=== PATIENT | male | born 1935 | race Caucasian/White ===

== ENCOUNTER 2017-04-03 13:43 | Inpatient (IN) | payer MEDICARE, OTHER ==
[~2017-04-03] VITALS: Ht 170.2 cm; Wt 50.1 kg
[~2017-04-03 13:43] MED LIST: BENAZEPRIL HYDR40 MG PO; CARBIDOPA/LE1 TABLE2 PO; CEFTIN500 MG PO; MIRALAX17 GM/PACK PO; PRAVASTATIN 20M20 MG PO; REQUIP0.25 MG PO; ZITHROMAX 250M250 MG PO; ZITHROMAX Z PA250 MG PO; ZITHROMAX Z-PA250 M2 PO; ZOCOR20 MG PO
[2017-04-03 13:45] VITALS: BP 123/65
[2017-04-03 14:03] LABS: LYMPH # 1.2 K/mm3 (0.7-4.5)
--- NOTE | 2017-04-03 14:21 | RADIOLOGY REPORT PS360 ---
CHEST-PORTABLE HISTORY: dyspnea ORDERING PHYSICIAN: Francisco De Jesus MD PATIENT AGE: 81 years COMPARISON: 12/29/2016 FINDINGS: The cardiomediastinal silhouette and pulmonary vascularity are within normal limits. The lungs are clear without infiltrates, suspicious nodules, or pleural effusions. No acute bony abnormalities. IMPRESSION: No change with no acute finding
--- OUTSIDE RECORDS SUMMARY | 2017-04-03 14:25 | External Medical Summary Rpt | CCD ---
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 Name Role Phone [facility], [facility] Purpose Continuity of Care Document - 07-19-2012 through 2016 Problems Code Diagnosis DOS Provider Status [address] [facility] J20.9 ACUTE BRONCHITIS, UNSPECIFIED M25.551 PAIN IN RIGHT HIP Allergies, Adverse Reactions, Alerts Type Allergy to substance Adverse Reaction to Substance Substance Reaction Severity INGREDIENT: NO KNOWN Unknown Unknown - NO KNOWN DRUG ALLERGY NO KNOWN ALLERGIES Unknown Unknown Medications Na ND Rx Da Fi Fi Am Da Di Ph RX Ph St me C No te ll ll ou ys ag ar # ys at rm s nt no ma ic us Or Da si cy ia de te s n re d TY 50 11 1 No LE 58 -2 NO 00 6- Lo L 45 20 ng EX 10 13 er -S 3 TR Ac ti 50 ve [address] ET HY [address] 07 -2 OC 90 6- Lo HL 77 20 ng OR 62 13 er OT 0 HI Ac AZ ti ID ve E 12 .5 MG CP LI 63 11 1 No SI 73 -2 NO 90 6- Lo WA 35 20 ng IL 01 13 er 0 20 Ac ti MG ve TA BL ET RE 00 11 1 No QU 00 -2 IP 74 6- Lo 1 89 20 ng 22 13 er MG 0 Ac TA ti BL ve ET Po 00 11 1 No ta 24 -2 ss 50 6- Lo iu 05 20 ng m 80 13 er Ch 1 lo Ac ri ti de ve 20 ME Q Ta bl e Po 00 11 1 No ta 24 -2 ss 50 6- Lo iu 05 20 ng m 80 13 er Ch 1 lo Ac ri ti de ve 20 ME Q Ta bl e AZ 00 11 1 No IT 40 -2 HR 90 6- Lo OM 14 20 ng YC 41 13 er IN 1 Ac I. ti V. ve 50 0 MG AL SO 00 11 1 No DI 40 -2 UM 97 6- Lo 10 20 ng CH 10 13 er LO 2 RI Ac DE ti ve 0. 9% SO LN CE 00 11 2 No FT 40 -2 RI 97 5- Lo AX 33 20 ng ON 30 13 er E 4 1 Ac GM ti ve AL AZ 00 11 1 No IT 40 -2 HR 90 5- Lo OM 14 20 ng YC 41 13 er IN 1 Ac I. ti V. ve 50 0 MG AL SO 00 11 1 No DI 40 -2 UM 97 5- Lo 10 20 ng CH 10 13 er LO 2 RI Ac DE ti ve 0. 9% SO LN IP 00 11 2 No RA 48 -2 T- 70 5- Lo AL 20 20 ng BU 10 13 er T 1 0. Ac 5- ti 3( ve 2. 5) MG /3 ML RE 00 11 1 No QU 00 -2 IP 74 5- Lo 89 20 ng 0. 02 13 er 25 0 Ac MG ti ve TA BL ET CA 63 11 2 No RB 73 -2 ID 90 5- Lo OP 04 20 ng A- 71 13 er LE 0 VO Ac DO ti PA ve 25 -1 00 TA B WA 51 11 2 No AV 07 -2 90 5- Lo TA 45 20 ng TI 82 13 er N 0 SO Ac DI ti UM ve 20 MG TA B Ca 51 03 5 No rb 07 -0 id 90 8- Lo op 75 20 ng a/ 62 13 er Le 0 vo Ac do ti pa ve 25 /1 00 MG Ta Li 00 03 5 No si 17 -0 no 23 8- Lo pr 76 20 ng il 01 13 er 0 20 Ac MG ti ve Ta bl et PO 00 03 5 No LY 57 -0 ET 40 8- Lo HY 41 20 ng LE 20 13 er NE 7 Ac GL ti YC ve OL 33 50 PO WD RE 00 03 5 No QU 00 -0 IP 74 8- Lo 1 89 20 ng 22 13 er MG 0 Ac TA ti BL ve ET IP 00 03 5 No RA 48 -0 T- 70 8- Lo AL 20 20 ng BU 10 13 er T 1 0. Ac 5- ti 3( ve 2. 5) MG /3 ML AZ 59 03 5 No IT 76 -0 HR 23 8- Lo OM 06 20 ng YC 00 13 er IN 3 Ac 25 ti 0 ve MG TA BL ET AP 42 03 0 No LI 02 -0 SO 30 8- Lo L 10 20 ng 5T 40 13 er 1 UN Ac IT ti S/ ve 0. 1 ML AL WA 51 03 5 No AV 07 -0 90 8- Lo TA 45 20 ng TI 82 13 er N 0 SO Ac DI ti UM ve 20 MG TA B CL 00 03 5 No IN 40 -0 DA 94 8- Lo MY 05 20 ng CI 40 13 er N 3 15 Ac 0 ti MG ve /M L AD DV AN So 00 03 5 No di 07 -0 um 47 8- Lo 10 20 ng Ch 12 13 er lo 3 ri Ac de ti ve 0. 9% 10 0M L Ad v CE 00 03 5 No FT 40 -0 RI 97 8- Lo AX 33 20 ng ON 30 13 er E 4 1 Ac GM ti ve AL So 00 03 5 No d 07 -0 Ch 47 8- Lo lo 10 20 ng ri 11 13 er de 3 Ac 0. ti 9% ve 50 ML Ad v IS 00 03 0 No OV 27 -0 UE 01 7- Lo -3 31 20 ng 70 65 13 er 2 76 Ac % ti IN ve FU S HOLLY TT LE RA 63 03 0 No D- 80 -0 SA 70 7- Lo LI 10 20 ng NE 07 13 er 5A FL Ac US ti H ve 10 ML SY RI NG E Fu 00 03 1 No ro 17 -0 se 22 7- Lo mi 90 20 ng de 81 13 er 0 20 Ac MG ti ve Ta bl et AZ 59 03 2 No IT 76 -0 HR 23 6- Lo OM 06 20 ng YC 00 13 er IN 3 Ac 25 ti 0 ve MG TA BL ET RE 00 03 2 No QU 00 -0 IP 74 6- Lo 1 89 20 ng 22 13 er MG 0 Ac TA ti BL ve ET IP 00 03 4 No RA 48 -0 T- 70 4- Lo AL 20 20 ng BU 10 13 er T 1 0. Ac 5- ti 3( ve 2. 5) MG /3 ML RE 00 03 0 No QU 00 -0 IP 74 4- Lo 1 89 20 ng 22 13 er MG 0 Ac TA ti BL ve ET Ca 51 03 4 No rb 07 -0 id 90 4- Lo op 75 20 ng a/ 62 13 er Le 0 vo Ac do ti pa ve 25 /1 00 MG Ta Li 00 03 4 No si 17 -0 no 23 4- Lo pr 76 20 ng il 01 13 er 0 20 Ac MG ti ve Ta bl et PO 00 03 4 No LY 57 -0 ET 40 4- Lo HY 41 20 ng LE 20 13 er NE 7 Ac GL ti YC ve OL 33 50 PO WD WA 51 03 4 No AV 07 -0 90 4- Lo TA 45 20 ng TI 82 13 er N 0 SO Ac DI ti UM ve 20 MG TA B AZ 00 03 2 No IT 40 -0 HR 90 4- Lo OM 14 20 ng YC 41 13 er IN 1 Ac I. ti V. ve 50 0 MG AL SO 00 03 2 No DI 40 -0 UM 97 4- Lo 10 20 ng CH 10 13 er LO 2 RI Ac DE ti ve 0. 9% SO LN CE 00 03 4 No FT 40 -0 RI 97 4- Lo AX 33 20 ng ON 30 13 er E 4 1 Ac GM ti ve AL So 00 03 4 No d 07 -0 Ch 47 4- Lo lo 10 20 ng ri 11 13 er de 3 Ac 0. ti 9% ve 50 ML Ad v CE 00 03 0 No FT 40 -0 RI 97 3- Lo AX 33 20 ng ON 30 13 er E 4 1 Ac GM ti ve AL So 00 03 0 No d 07 -0 Ch 47 3- Lo lo 10 20 ng ri 11 13 er de 3 Ac 0. ti 9% ve 50 ML Ad v AZ 00 03 0 No IT 40 -0 HR 90 3- Lo OM 14 20 ng YC 41 13 er IN 1 Ac I. ti V. ve 50 0 MG AL SO 00 03 0 No DI 40 -0 UM 97 3- Lo 10 20 ng CH 10 13 er LO 2 RI Ac DE ti ve 0. 9% SO LN IP 00 03 0 No RA 48 -0 T- 70 3- Lo AL 20 20 ng BU 10 13 er T 1 0. Ac 5- ti 3( ve 2. 5) MG /3 ML MA 00 03 5 No PA 90 -0 P 41 3- Lo 32 98 20 ng 5 26 13 er MG 1 Ac TA ti BL ve ET Vital Signs 04-14-2013 11:30 Name Value Interpretat Reference Comment ion Range Body 99.6 [degF] Temperature BP 80 mm[Hg] Diastolic BP Systolic 150 mm[Hg] Heart 108 /min Rate/Pulse Respiratory 20 /min Rate 04-14-2013 08:00 Name Value Interpretat Reference Comment ion Range O2% 95 % 04-12-2013 17:00 Name Value Interpretat Reference Comment ion Range Body 98.2 [degF] Temperature BP 86 mm[Hg] Diastolic BP Systolic 165 mm[Hg] Heart 91 /min Rate/Pulse Height 170.18 cm O2% 96 % Respiratory 24 /min Rate Weight 129 [lb_av] Measured Weight 58.627 kg Measured 07-29-2012 10:55 Name Value Interpretat Reference Comment ion Range Body 98.8 [degF] Temperature BP 87 mm[Hg] Diastolic BP Systolic 165 mm[Hg] Heart 108 /min Rate/Pulse Respiratory 18 /min Rate 07-29-2012 08:10 Name Value Interpretat Reference Comment ion Range O2% 96 % 07-24-2012 12:00 Name Value Interpretat Reference Comment ion Range O2% 99 % 07-24-2012 08:00 Name Value Interpretat Reference Comment ion Range Body 98.2 [degF] Temperature Body 98.3 [degF] Temperature BP 82 mm[Hg] Diastolic BP Systolic 162 mm[Hg] BP Systolic 151 mm[Hg] Heart 84 /min Rate/Pulse Heart 88 /min Rate/Pulse Height 170.18 cm Respiratory 18 /min Rate Respiratory 20 /min Rate Weight 131 [lb_av] Measured Weight 59.591 kg Measured 07-24-2012 04:00 Name Value Interpretat Reference Comment ion Range O2% 93 % 07-19-2012 22:05 Name Value Interpretat Reference Comment ion Range Height 170.18 cm Weight 59.591 kg Measured 07-19-2012 20:02 Name Value Interpretat Reference Comment ion Range Body 100.3 Temperature [degF] BP 87 mm[Hg] Diastolic BP Systolic 186 mm[Hg] Heart 107 /min Rate/Pulse O2% 100 % Respiratory 20 /min Rate Weight 0 [oz_av] Measured Results Labs Lab Lab Date Result Refere Interp Status Commen Order Detail nces retati t Range on Urinalysis dipstick W Reflex Microscopic panel in Urine (12-29-2016 15:40) Bacteri 2+ O complet a 017 ed [Presen 15:40 ce] in Urine sedimen t by Light microsc opy Mucus 1+ NONE complet [Presen 017 ed ce] in 15:40 Urine sedimen t by Light microsc opy Urinalysis dipstick W Reflex Microscopic panel in Urine (12-29-2016 15:40) Appeara CLEAR CLEAR complet nce of 017 ed Urine 15:40 Bilirub NEGATIV NEG complet in 017 E ed [Presen 15:40 ce] in Urine by Test strip Erythro NEGATIV NEG complet cytes 017 E ed [Presen 15:40 ce] in Urine Color DK YELLOW complet of 017 YELLOW ed Urine 15:40 Ketones TRACE NEG Abnorma complet 017 l ed [Presen 15:40 ce] in Urine by Automat ed test strip Mucus NEGATIV NEG complet [Presen 017 E ed ce] in 15:40 Urine sedimen t by Light microsc opy Nitrite NEGATIV NEG complet 017 E ed [Presen 15:40 ce] in Urine by Test strip Urobili 0.2 NEG complet nogen 017 ed [Presen 15:40 ce] in Urine by Test strip BASIC METABOLIC PANEL (04-14-2013 06:20) Glucose 100 74-106 complet 013 mg/dL ed Bld-mCn 06:20 c BUN 14 7-18 complet Bld-mCn 013 mg/dL ed c 06:20 Creat 1.1 0.8-1.3 complet SerPl-m 013 mg/dL ed Cnc 06:20 Creat 48 50-200 complet Cl 013 ML/MIN ed predict 06:20 ed SerPl C-G-vRa te GFR/BSA 65 Greater complet .pred 013 ML/MIN than ed SerPl 06:20 60 Schwart z-vRate Sodium 142 136-145 complet SerPl-s 013 mmoL/L ed Cnc 06:20 Potassi 3.8 3.5-5.1 complet um 013 mmoL/L ed SerPl-s 06:20 Cnc Chlorid 107 98-107 complet e 013 mmoL/L ed SerPl-s 06:20 Cnc CO2 28 21.0-32 complet SerPl-s 013 mmoL/L .0 ed Cnc 06:20 Calcium 7.9 8.5-10. complet 013 mg/dL 1 ed SerPl-m 06:20 Cnc CBC with AUTO DIFF (04-14-2013 06:20) WBC # 11-27-2 5.9 4.8-10. complet Bld 013 K/MM3 8 ed Auto 06:20 RBC # 11-27-2 3.98 4.6-6.2 complet Bld 013 M/mm3 ed Auto 06:20 Hgb 11-27-2 11.8 14.1-18 complet Bld-mCn 013 g/dL .0 ed c 06:20 Hct Fr 11-2 34.2 % 42.0-52 complet Bld 013 .0 ed 06:20 MCV RBC 11-2 86.1 fl 82.2-97 complet 013 .8 ed 06:20 MCH RBC 04-14-2 29.8 pg 27-31.2 complet Qn 013 ed Auto 06:20 MEAN 11-27-2 34.6 31.8-35 complet CORPUSC 013 g/dl .4 ed ULAR 06:20 HGB CONC RDW RBC 27-2 14.3 % 11.5-17 complet Auto 013 .5 ed 06:20 Platele 11-27-2 178 142-424 complet t Bld 013 K/mm3 ed Ql 06:20 Manual MEAN 11-27-2 7.8 fl 7.4-10. complet PLATELE 013 4 ed T 06:20 VOLUME Granulo --2 73.0 % 37.0-80 complet cytes 013 .0 ed Fr Bld 06:20 Auto LYMPH % 11-27-2 18.4 % 10-50 complet 013 ed 06:20 Monocyt 11-27-2 6.6 % 1.7-9.3 complet es Fr 013 ed Bld 06:20 Auto Eosinop 11-27-2 1.8 % 0.1-12. complet hil Fr 013 0 ed Bld 06:20 Auto Basophi 11-27-2 0.3 % 0.1-2.0 complet ls Fr 013 ed Bld 06:20 Auto Granulo 11-27-2 4.3 1.3-8.0 complet cytes # 013 K/mm3 ed Bld 06:20 Auto Lymphoc 11-27-2 1.1 0.7-4.5 complet ytes Fr 013 K/mm3 ed Bld 06:20 Auto Monocyt 04-14-2 0.4 0.1-1.0 complet es # 013 K/mm3 ed Bld 06:20 Auto Eosinop 04-14-2 0.1 0.0-0.4 complet hil # 013 K/mm3 ed Bld 06:20 Auto Basophi 04-14-2 0.0 0-0.2 complet ls # 013 K/MM3 ed Bld 06:20 Auto BASIC METABOLIC PANEL (04-13-2013 06:30) Glucose 108 74-106 complet 013 mg/dL ed Bld-mCn 06:30 c BUN 04-13-2 19 7-18 complet Bld-mCn 013 mg/dL ed c 06:30 Creat 2 1.3 0.8-1.3 complet SerPl-m 013 mg/dL ed Cnc 06:30 Creat 41 50-200 complet Cl 013 ML/MIN ed predict 06:30 ed SerPl C-G-vRa te GFR/BSA 54 Greater complet .pred 013 ML/MIN than ed SerPl 06:30 60 Schwart z-vRate Sodium 140 136-145 complet SerPl-s 013 mmoL/L ed Cnc 06:30 Potassi 2 3.4 3.5-5.1 complet um 013 mmoL/L ed SerPl-s 06:30 Cnc Chlorid 105 98-107 complet e 013 mmoL/L ed SerPl-s 06:30 Cnc CO2 26 21.0-32 complet SerPl-s 013 mmoL/L .0 ed Cnc 06:30 Calcium 04-13-2 8.1 8.5-10. complet 013 mg/dL 1 ed SerPl-m 06:30 Cnc CBC with AUTO DIFF (04-13-2013 06:30) WBC # 04-13-2 8.2 4.8-10. complet Bld 013 K/MM3 8 ed Auto 06:30 RBC # 04-13-2 4.19 4.6-6.2 complet Bld 013 M/mm3 ed Auto 06:30 Hgb 04-13-2 12.4 14.1-18 complet Bld-mCn 013 g/dL .0 ed c 06:30 Hct Fr 11-26-2 36.0 % 42.0-52 complet Bld 013 .0 ed 06:30 MCV RBC 11-2 86.0 fl 82.2-97 complet 013 .8 ed 06:30 MCH RBC 04-13-2 29.6 pg 27-31.2 complet Qn 013 ed Auto 06:30 MEAN 11-26-2 34.4 31.8-35 complet CORPUSC 013 g/dl .4 ed ULAR 06:30 HGB CONC RDW RBC 26-2 14.4 % 11.5-17 complet Auto 013 .5 ed 06:30 Platele 11-26-2 183 142-424 complet t Bld 013 K/mm3 ed Ql 06:30 Manual MEAN 11-2 7.9 fl 7.4-10. complet PLATELE 013 4 ed T 06:30 VOLUME Granulo 04-13-2 75.0 % 37.0-80 complet cytes 013 .0 ed Fr Bld 06:30 Auto LYMPH % 11-26-2 18.4 % 10-50 complet 013 ed 06:30 Monocyt 11-26-2 5.9 % 1.7-9.3 complet es Fr 013 ed Bld 06:30 Auto Eosinop 11-26-2 0.4 % 0.1-12. complet hil Fr 013 0 ed Bld 06:30 Auto Basophi 11-26-2 0.3 % 0.1-2.0 complet ls Fr 013 ed Bld 06:30 Auto Granulo 11-26-2 6.2 1.3-8.0 complet cytes # 013 K/mm3 ed Bld 06:30 Auto Lymphoc 11-26-2 1.5 0.7-4.5 complet ytes Fr 013 K/mm3 ed Bld 06:30 Auto Monocyt 11-26-2 0.5 0.1-1.0 complet es # 013 K/mm3 ed Bld 06:30 Auto Eosinop 11-26-2 0.0 0.0-0.4 complet hil # 013 K/mm3 ed Bld 06:30 Auto Basophi 11-26-2 0.0 0-0.2 complet ls # 013 K/MM3 ed Bld 06:30 Auto BASIC METABOLIC PANEL (04-12-2013 17:10) Glucose 04-12-2 86 74-106 complet 013 mg/dL ed Bld-mCn 17:10 c BUN 04-12-2 17 7-18 complet Bld-mCn 013 mg/dL ed c 17:10 Creat 04-12-2 1.2 0.8-1.3 complet SerPl-m 013 mg/dL ed Cnc 17:10 GFR/BSA 59 Greater complet .pred 013 ML/MIN than ed SerPl 17:10 60 Schwart z-vRate Sodium 139 136-145 complet SerPl-s 013 mmoL/L ed Cnc 17:10 Potassi 04-12-2 4.0 3.5-5.1 complet um 013 mmoL/L ed SerPl-s 17:10 Cnc Chlorid 102 98-107 complet e 013 mmoL/L ed SerPl-s 17:10 Cnc CO2 30 21.0-32 complet SerPl-s 013 mmoL/L .0 ed Cnc 17:10 Calcium 04-12-2 9.2 8.5-10. complet 013 mg/dL 1 ed SerPl-m 17:10 Cnc CBC with AUTO DIFF (04-12-2013 17:10) WBC # 25-2 10.2 4.8-10. complet Bld 013 K/MM3 8 ed Auto 17:10 RBC # 25-2 5.01 4.6-6.2 complet Bld 013 M/mm3 ed Auto 17:10 Hgb 04-12-2 14.7 14.1-18 complet Bld-mCn 013 g/dL .0 ed c 17:10 Hct Fr 04-12-2 43.3 % 42.0-52 complet Bld 013 .0 ed 17:10 MCV RBC 04-12-2 86.5 fl 82.2-97 complet 013 .8 ed 17:10 MCH RBC 04-12-2 29.4 pg 27-31.2 complet Qn 013 ed Auto 17:10 MEAN 04-12-2 34.0 31.8-35 complet CORPUSC 013 g/dl .4 ed ULAR 17:10 HGB CONC RDW RBC 25-2 14.4 % 11.5-17 complet Auto 013 .5 ed 17:10 Platele 04-12-2 221 142-424 complet t Bld 013 K/mm3 ed Ql 17:10 Manual MEAN 11-25-2 7.9 fl 7.4-10. complet PLATELE 013 4 ed T 17:10 VOLUME Granulo 11-25-2 86.8 % 37.0-80 complet cytes 013 .0 ed Fr Bld 17:10 Auto LYMPH % 11-25-2 7.6 % 10-50 complet 013 ed 17:10 Monocyt 11-25-2 4.5 % 1.7-9.3 complet es Fr 013 ed Bld 17:10 Auto Eosinop 11-25-2 0.8 % 0.1-12. complet hil Fr 013 0 ed Bld 17:10 Auto Basophi 11-25-2 0.4 % 0.1-2.0 complet ls Fr 013 ed Bld 17:10 Auto Granulo 11-25-2 8.8 1.3-8.0 complet cytes # 013 K/mm3 ed Bld 17:10 Auto Lymphoc 11-25-2 0.8 0.7-4.5 complet ytes Fr 013 K/mm3 ed Bld 17:10 Auto Monocyt 11-25-2 0.5 0.1-1.0 complet es # 013 K/mm3 ed Bld 17:10 Auto Eosinop 11-25-2 0.1 0.0-0.4 complet hil # 013 K/mm3 ed Bld 17:10 Auto Basophi 11-25-2 0.0 0-0.2 complet ls # 013 K/MM3 ed Bld 17:10 Auto MYCOPLASMA IGM (RAPID) (04-12-2013 17:10) MYCOPLA 11-25-2 NON-VIKY NONREAC complet SMA IGM 013 CTIVE TIVE ed 17:10 (RAPID) COMPREHENSIVE METABOLIC PANEL (07-26-2012 07:00) Glucose 96 74-106 complet 013 mg/dL ed Bld-mCn 07:00 c BUN 16 7-18 complet Bld-mCn 013 mg/dL ed c 07:00 Creat 1.1 0.8-1.3 complet SerPl-m 013 mg/dL ed Cnc 07:00 ESTIMAT 50 50-200 complet ED 013 ML/MIN ed CREATIN 07:00 INE CLEARAN CE GFR 65 Greater complet (ESTIMA 013 ML/MIN than ed SIMI) 07:00 60 Sodium 141 136-145 complet SerPl-s 013 mmoL/L ed Cnc 07:00 Potassi 3.3 3.5-5.1 complet um 013 mmoL/L ed SerPl-s 07:00 Cnc Chlorid 107 98-107 complet e 013 mmoL/L ed SerPl-s 07:00 Cnc CO2 28 21.0-32 complet SerPl-s 013 mmoL/L .0 ed Cnc 07:00 Calcium 8.5 8.5-10. complet 013 mg/dL 1 ed SerPl-m 07:00 Cnc Prot 6.3 6.4-8.2 complet SerPl-m 013 gm/dL ed Cnc 07:00 Albumin 3.0 3.4-5.0 complet 013 gm/dL ed SerPl-m 07:00 Cnc Globuli 3.3 1.3-3.2 complet n 013 gm/dL ed Ser-mCn 07:00 c Albumin 0.9 UNK 1.1-1.8 complet /Glob 013 ed SerPl-m 07:00 Rto Bilirub 0.3 0.2-1.0 complet 013 mg/dL ed SerPl-m 07:00 Cnc AST 21 U/L 15-37 complet SerPl-c 013 ed Cnc 07:00 ALT 24 U/L 30-65 complet SerPl-c 013 ed Cnc 07:00 ALP 84 U/L 50-136 complet SerPl-c 013 ed Cnc 07:00 CBC with AUTO DIFF (07-26-2012 07:00) WBC # -10-2 7.5 4.8-10. complet Bld 013 K/MM3 8 ed Auto 07:00 RBC # -10-2 4.25 4.6-6.2 complet Bld 013 M/mm3 ed Auto 07:00 Hgb 07-26- 12.2 14.1-18 complet Bld-mCn 013 g/dL .0 ed c 07:00 Hct Fr 36.7 % 42.0-52 complet Bld 013 .0 ed 07:00 MCV RBC 10-2 86.4 fl 82.2-97 complet 013 .8 ed 07:00 MCH RBC 10-2 28.8 pg 27-31.2 complet Qn 013 ed Auto 07:00 MEAN 2 33.3 31.8-35 complet CORPUSC 013 g/dl .4 ed ULAR 07:00 HGB CONC RDW RBC 07-26-2 13.3 % 11.5-17 complet Auto 013 .5 ed 07:00 Platele 07-26-2 298 142-424 complet t Bld 013 K/mm3 ed Ql 07:00 Manual MEAN 7.2 fl 7.4-10. complet PLATELE 013 4 ed T 07:00 VOLUME Granulo 10-2 72.8 % 37.0-80 complet cytes 013 .0 ed Fr Bld 07:00 Auto LYMPH % 10-2 16.4 % 10-50 complet 013 ed 07:00 Monocyt 10-2 5.0 % 1.7-9.3 complet es Fr 013 ed Bld 07:00 Auto Eosinop -10-2 5.3 % 0.1-12. complet hil Fr 013 0 ed Bld 07:00 Auto Basophi -10-2 0.5 % 0.1-2.0 complet ls Fr 013 ed Bld 07:00 Auto Granulo -10-2 5.5 1.3-8.0 complet cytes # 013 K/mm3 ed Bld 07:00 Auto Lymphoc -10-2 1.2 0.7-4.5 complet ytes Fr 013 K/mm3 ed Bld 07:00 Auto Monocyt -10-2 0.4 0.1-1.0 complet es # 013 K/mm3 ed Bld 07:00 Auto Eosinop 03-10-2 0.4 0.0-0.4 complet hil # 013 K/mm3 ed Bld 07:00 Auto Basophi 03-10-2 0.0 0-0.2 complet ls # 013 K/MM3 ed Bld 07:00 Auto CBC with AUTO DIFF (07-20-2012 06:02) WBC # 03-04-2 11.0 4.8-10. complet Bld 013 K/MM3 8 ed Auto 06:02 RBC # 03-04-2 4.45 4.6-6.2 complet Bld 013 M/mm3 ed Auto 06:02 Hgb 04-2 13.1 14.1-18 complet Bld-mCn 013 g/dL .0 ed c 06:02 Hct Fr 2 38.4 % 42.0-52 complet Bld 013 .0 ed 06:02 MCV RBC 2 86.4 fl 82.2-97 complet 013 .8 ed 06:02 MCH RBC 07-20-2 29.5 pg 27-31.2 complet Qn 013 ed Auto 06:02 MEAN 042 34.1 31.8-35 complet CORPUSC 013 g/dl .4 ed ULAR 06:02 HGB CONC RDW RBC 07-20-2 13.4 % 11.5-17 complet Auto 013 .5 ed 06:02 Platele 07-20-2 196 142-424 complet t Bld 013 K/mm3 ed Ql 06:02 Manual MEAN 2 7.5 fl 7.4-10. complet PLATELE 013 4 ed T 06:02 VOLUME Granulo -04-2 88.0 % 37.0-80 complet cytes 013 .0 ed Fr Bld 06:02 Auto LYMPH % -04-2 8.2 % 10-50 complet 013 ed 06:02 Monocyt -04-2 3.3 % 1.7-9.3 complet es Fr 013 ed Bld 06:02 Auto Eosinop 03-04-2 0.2 % 0.1-12. complet hil Fr 013 0 ed Bld 06:02 Auto Basophi 03-04-2 0.3 % 0.1-2.0 complet ls Fr 013 ed Bld 06:02 Auto Granulo 03-04-2 9.7 1.3-8.0 complet cytes # 013 K/mm3 ed Bld 06:02 Auto Lymphoc 03-04-2 0.9 0.7-4.5 complet ytes Fr 013 K/mm3 ed Bld 06:02 Auto Monocyt 03-04-2 0.4 0.1-1.0 complet es # 013 K/mm3 ed Bld 06:02 Auto Eosinop 03-04-2 0.0 0.0-0.4 complet hil # 013 K/mm3 ed Bld 06:02 Auto Basophi 0.0 0-0.2 complet ls # 013 K/MM3 ed Bld 06:02 Auto COMPREHENSIVE METABOLIC PANEL (07-19-2012 20:15) Glucose 104 74-106 complet 013 mg/dL ed Bld-mCn 20:15 c BUN 15 7-18 complet Bld-mCn 013 mg/dL ed c 20:15 Creat 1.2 0.8-1.3 complet SerPl-m 013 mg/dL ed Cnc 20:15 ESTIMAT 48 50-200 complet ED 013 ML/MIN ed CREATIN 20:15 INE CLEARAN CE GFR 59 Greater complet (ESTIMA 013 ML/MIN than ed SIMI) 20:15 60 Sodium 140 136-145 complet SerPl-s 013 mmoL/L ed Cnc 20:15 Potassi 4.4 3.5-5.1 complet um 013 mmoL/L ed SerPl-s 20:15 Cnc Chlorid 103 98-107 complet e 013 mmoL/L ed SerPl-s 20:15 Cnc CO2 30 21.0-32 complet SerPl-s 013 mmoL/L .0 ed Cnc 20:15 Calcium 8.9 8.5-10. complet 013 mg/dL 1 ed SerPl-m 20:15 Cnc Prot 7.6 6.4-8.2 complet SerPl-m 013 gm/dL ed Cnc 20:15 Albumin 4.0 3.4-5.0 complet 013 gm/dL ed SerPl-m 20:15 Cnc Globuli 3.6 1.3-3.2 complet n 013 gm/dL ed Ser-mCn 20:15 c Albumin 1.1 UNK 1.1-1.8 complet /Glob 013 ed SerPl-m 20:15 Rto Bilirub 1.0 0.2-1.0 complet 013 mg/dL ed SerPl-m 20:15 Cnc AST 17 U/L 15-37 complet SerPl-c 013 ed Cnc 20:15 ALT 03-03-2 19 U/L 30-65 complet SerPl-c 013 ed Cnc 20:15 ALP 03-03-2 127 U/L 50-136 complet SerPl-c 013 ed Cnc 20:15 CBC with AUTO DIFF (07-19-2012 20:15) WBC # 03-03-2 13.8 4.8-10. complet Bld 013 K/MM3 8 ed Auto 20:15 RBC # 03-03-2 4.93 4.6-6.2 complet Bld 013 M/mm3 ed Auto 20:15 Hgb 03-03-2 14.4 14.1-18 complet Bld-mCn 013 g/dL .0 ed c 20:15 Hct Fr 03-03-2 42.8 % 42.0-52 complet Bld 013 .0 ed 20:15 MCV RBC 03-03-2 86.7 fl 82.2-97 complet 013 .8 ed 20:15 MCH RBC 03-03-2 29.2 pg 27-31.2 complet Qn 013 ed Auto 20:15 MEAN 03-03-2 33.7 31.8-35 complet CORPUSC 013 g/dl .4 ed ULAR 20:15 HGB CONC RDW RBC 03-03-2 13.5 % 11.5-17 complet Auto 013 .5 ed 20:15 Platele 03-03-2 230 142-424 complet t Bld 013 K/mm3 ed Ql 20:15 Manual MEAN 03-03-2 7.7 fl 7.4-10. complet PLATELE 013 4 ed T 20:15 VOLUME Granulo 03-03-2 85.4 % 37.0-80 complet cytes 013 .0 ed Fr Bld 20:15 Auto LYMPH % 03-03-2 8.7 % 10-50 complet 013 ed 20:15 Monocyt 03-03-2 4.0 % 1.7-9.3 complet es Fr 013 ed Bld 20:15 Auto Eosinop 03-03-2 1.6 % 0.1-12. complet hil Fr 013 0 ed Bld 20:15 Auto Basophi 03-03-2 0.3 % 0.1-2.0 complet ls Fr 013 ed Bld 20:15 Auto Granulo 03-03-2 11.8 1.3-8.0 complet cytes # 013 K/mm3 ed Bld 20:15 Auto Lymphoc 03-03-2 1.2 0.7-4.5 complet ytes Fr 013 K/mm3 ed Bld 20:15 Auto Monocyt 03-03-2 0.6 0.1-1.0 complet es # 013 K/mm3 ed Bld 20:15 Auto Eosinop 03-03-2 0.2 0.0-0.4 complet hil # 013 K/mm3 ed Bld 20:15 Auto Basophi 03-03-2 0.0 0-0.2 complet ls # 013 K/MM3 ed Bld 20:15 Auto MYCOPLASMA IGM (RAPID) (07-19-2012 20:15) MYCOPLA 07-19-2 NON-VIKY NONREAC complet SMA IGM 013 CTIVE TIVE ed 20:15 (RAPID) Encounters Encounter Start End Date Code Location Performer Type Date Inpatient [place] 3 16:32 3 11:30 [facility] [place]patient [place] 3 09:00 3 10:55 Inpatient IMP Torsten Mem[place]reno [place] 3 20:50 3 09:00 [facility]
--- OUTSIDE RECORDS SUMMARY | 2017-04-03 14:25 | External Medical Summary Rpt | CCD ---
Author Author , YAYA JAVIER Address Unknown Phone [email or web address] Care Team Providers Care High Lift Driver Name Role Phone [facility], [facility] Purpose Continuity of Care Document - 07-19-2012 through 2016 Problems Code Diagnosis DOS Provider Status 486 [facility] J20.9 ACUTE BRONCHITIS, UNSPECIFIED M25.551 PAIN [...] SI 73 -2 NO 90 6- Lo MI 35 20 ng [place] 01 13 er [...] PA ve 25 -1 00 TA B MI 51 11 2 No AV 07 -2 [...] ti S/ ve 0. 1 ML AL MI 51 03 5 No AV 07 -0 [...] YC ve OL 33 50 PO WD MI 51 03 4 No AV 07 -0 [...] MAT[place]DE [place] ([place]) 3 16:32 3 11:30 [facility] Inpatient [place] 3 09:00 3 10:55 Inpatient IMP Torsten Membreno ([place] 3 20:50 3 09:00 [facility]
--- OUTSIDE RECORDS SUMMARY | 2017-04-03 14:26 | External Medical Summary Rpt | CCD ---
Author Author , YAYA JAVIER Address Unknown Phone [email or web address] Immunization Name Date Rout CVX Reac Dose Comm Prov Is Faci e tion ent ider Refu lity Give sed n Infl 10-2 Intr 135 0.5 Hist D049 No D049 uenz 8-20 amus mL oric 01 01 a, 17 cula al High r Info rmat Dose ion - Sour ce Unsp ecif ied
--- OUTSIDE RECORDS SUMMARY | 2017-04-03 14:26 | External Medical Summary Rpt | CCD ---
Author Author , YAYA JAVIER Address Unknown Phone Immunization Name Date Rout CVX Reac Dose Comm Prov Is Faci e tion ent ider Refu lity Give sed n Infl 10-2 Intr 135 0.5 Hist D049 No D049 uenz 8-20 amus mL oric 01 01 a, 17 cula al High r Info rmat Dose ion - Sour ce Unsp ecif ied
--- OUTSIDE RECORDS SUMMARY | 2017-04-03 14:27 | External Medical Summary Rpt ---
Author Author YAYA Nenita, [employer] Organization [employer] Address Unknown Phone Unavailable Results Comprehensive metabolic 2000 panel in Serum or Plasma Observa Value Referen Units Interpr Notes Date tion ce etation Range Albumin/G 1.1 - 1.8 No Low No Dec 29 lobulin informati informati 2017 7:05 [Mass on in on in PM ratio] in source source Serum or data data Plasma Albumin 3.4 - 5.0 gm/dL Normal No Dec 29 [Mass/vol informati 2016 7:05 ume] in on in PM Serum or source Plasma data Alkaline 46 - 116 U/L Normal No Dec 29 phosphata informati 2016 7:05 se on in PM [Enzymati source c data activity/ volume] in Serum or Plasma Bilirubin 0.2 - 1.0 mg/dL Normal No Dec 29 .total informati 2016 7:05 [Mass/vol on in PM ume] in source Serum or data Plasma Urea 7 - 18 mg/dL High No Dec 29 nitrogen informati 2017 7:05 [Mass/vol on in PM ume] in source Serum or data Plasma Calcium 8.5 - mg/dL Normal No Dec 29 [Mass/vol 10.1 informati 2017 7:05 ume] in on in PM Serum or source Plasma data Chloride 98 - 107 mmoL/L Normal No Dec 29 [Moles/vo informati 2017 7:05 lume] in on in PM Serum or source Plasma data Carbon 21.0 - mmoL/L Normal No Dec 29 dioxide, 32.0 informati 2017 7:05 total on in PM [Moles/vo source lume] in data Serum or Plasma Creatinin 0.70 - mg/dL Normal No Dec 29 e 1.30 informati 2017 7:05 [Mass/vol on in PM ume] in source Serum or data Plasma Creatinin 50 - 200 ML/MIN Normal No Dec 29 e renal informati 2017 7:05 clearance on in PM source predicted data by Cockcroft -Gault formula Estimated >60 ML/MIN No REFERENCE Dec 29 informati RANGE: 2017 7:05 glomerula on in >60 PM r source ML/MIN/1. filtratio data 73 SQUARE n rate METERSIf (GF this patient is -A merican, then multiply theresult by 1.210. Globulin 1.3 - 3.2 gm/dL High No Dec 29 [Mass/vol informati 2016 7:05 ume] in on in PM Serum source data Glucose 74 - 106 mg/dL Normal No Dec 29 [Mass/vol informati 2016 7:05 ume] in on in PM Serum or source Plasma data Potassium 3.5 - 5.1 mmoL/L Normal No Dec 292016 7:05 [Moles/vo on in PM lume] in source Serum or data Plasma Sodium 136 - 145 mmoL/L Normal No Dec 29 [Moles/vo ati 2016 7:05 lume] in on in PM Serum or source Plasma data Aspartate 15 - 37 U/L Normal No Dec 29 inform2016 7:05 aminotran on in PM sferase source [Enzymati data c activity/ volume] in Serum or Plasma Alanine 12 - 78 U/L Normal No Dec 29 aminotran ati 2016 7:05 sferase on in PM [Enzymati source c data activity/ volume] in Serum or Plasma Protein 6.4 - 8.2 gm/dL Normal No Dec 29 [Mass/vol informati 2016 7:05 ume] in on in PM Serum or source Plasma data CBC W Auto Differential panel in Blood Observa Value Referen Units Interpr Notes Date tion ce etation Range Basophils 0 - 0.2 K/MM3 Normal No Dec 292016 7:05 [#/volume on in PM ] in source Blood by data Automated count Basophils 0.1 - 2.0 % Normal No Dec 29 / informati 2016 7:05 leukocyte on in PM s in source Blood by data Automated count Eosinophi 0.0 - 0.4 K/mm3 Normal No Dec 29 ls informati 2016 7:05 [#/volume on in PM ] in source Blood by data Automated count Eosinophi 0.1 - % Normal No Dec 29 ls/100 12.0 informati 2016 7:05 leukocyte on in PM s in source Blood by data Automated count Granulocy 1.3 - 8.0 K/mm3 Normal No Dec 29 denisse informati 2017 7:05 [#/volume on in PM ] in source Blood by data Automated count Granulocy 37.0 - % Normal No Dec 29 denisse/100 80.0 informati 2016 7:05 leukocyte on in PM s in source Blood by data Automated count Hematocri 42.0 - % Low No Dec 29 t [Volume 52.0 informati 2017 7:05 on in PM Fraction] source of Blood data Hemoglobi 14.1 - g/dL Low No Dec 29 n 18.0 informati 2016 7:05 [Mass/vol on in PM ume] in source Blood data Lymphocyt 0.7 - 4.5 K/mm3 Normal No Dec 29 es informati 2017 7:05 [#/volume on in PM ] in source Unspecifi data ed specimen by Automated count Lymphocyt 10 - 50 % Normal No Dec 29 es informati 2016 7:05 [#/volume on in PM ] in source Unspecifi data ed specimen by Automated count Erythrocy 27 - 31.2 pg Normal No Dec 29 te mean informati 2016 7:05 corpuscul on in PM ar source hemoglobi data n [Entitic mass] Erythrocy 31.8 - g/dl Normal No Dec 29 te mean 35.4 informati 2016 7:05 corpuscul on in PM ar source hemoglobi data n concentra tion [Mass/vol ume] by Automated count Erythrocy 82.2 - fl Normal No Dec 29 te mean 97.8 informati 2016 7:05 corpuscul on in PM ar volume source [Entitic data volume] by Automated count Monocytes 0.1 - 1.0 K/mm3 Normal No Dec 29 informati 2016 7:05 [#/volume on in PM ] in source Blood by data Automated count Monocytes 1.7 - 9.3 % Normal No Dec 29 / informati 2017 7:05 leukocyte on in PM s in source Blood by data Automated count Platelet 7.4 - fl Normal No Dec 29 mean 10.4 informati 2016 7:05 volume on in PM [Entitic source volume] data in Blood by Automated count Platelets 142 - 424 K/mm3 Normal No Dec 29 informati 2017 7:05 [#/volume on in PM ] in source Blood data Erythrocy 4.6 - 6.2 M/mm3 Low No Dec 29 denisse informati 2016 7:05 [#/volume on in PM ] in source Amniotic data fluid Erythrocy 11.5 - % Normal No Dec 29 te 17.5 informati 2016 7:05 distribut on in PM ion width source [Entitic data volume] by Automated count Leukocyte 4.8 - K/MM3 Normal No Dec 29 s 10.8 informati 2017 7:05 [#/volume on in PM ] in source Blood data Urinalysis dipstick W Reflex Microscopic panel in Urine Observa Value Referen Units Interpr Notes Date tion ce etation Range Appeara CLEAR CLEAR No No No Dec 29 nce of informa informa informa 2016 Urine tion in tion in tion in 3:40 PM source source source data data data Bacteri 2+ O No No No Dec 29 a informa informa informa 2016 [Presen tion in tion in tion in 3:40 PM ce] in source source source Urine data data data sedimen t by Light microsc opy Bilirub NEGATIV NEG No No No Dec 29 in E informa informa informa 2016 [Presen tion in tion in tion in 3:40 PM ce] in source source source Urine data data data by Test strip Erythro NEGATIV NEG No No No Dec 29 cytes E informa informa informa 2016 [Presen tion in tion in tion in 3:40 PM ce] in source source source Urine data data data Color DK YELLOW No No No Dec 29 of YELLOW informa informa informa 2016 Urine tion in tion in tion in 3:40 PM source source source data data data Glucose NEG No No No Dec 29 [Mass/vol informati informati informati 2016 3:40 ume] in on in on in on in PM Urine by source source source Test data data data strip Ketones TRACE NEG mg/dL Abnorma No Dec 29 l informa 2016 [Presen tion in 3:40 PM ce] in source Urine data by Automat ed test strip Mucus NEGATIV NEG No No No Dec 29 [Presen E informa informa informa 2016 ce] in tion in tion in tion in 3:40 PM Urine source source source sedimen data data data t by Light microsc opy Mucus 1+ NONE No No No Dec 29 [Presen informa informa informa 2016 ce] in tion in tion in tion in 3:40 PM Urine source source source sedimen data data data t by Light microsc opy Nitrite NEGATIV NEG No No No Dec 29 E informa informa informa 2016 [Presen tion in tion in tion in 3:40 PM ce] in source source source Urine data data data by Test strip pH of 5.0 - 8.5 No Normal No Dec 29 Urine informati informati 2017 3:40 on in on in PM source source data data Protein NEG mg/dL No No Dec 29 [Mass/vol informati informati 2016 3:40 ume] in on in on in PM Urine by source source Automated data data test strip Specific 1.005 - No Normal No Dec 29 gravity 1.030 informati informati 2016 3:40 of Urine on in on in PM source source data data Urobili 0.2 NEG E.U./dL No No Dec 29 nogen informa informa 2016 [Presen tion in tion in 3:40 PM ce] in source source Urine data data by Test strip Leukocyte O wbc/hpf No No Dec 29 s informati informati 2016 3:40 [#/volume on in on in PM ] in source source Urine data data Urinalysis dipstick W Reflex Microscopic panel in Urine Observa Value Referen Units Interpr Notes Date tion ce etation Range Appeara CLEAR CLEAR No No No Dec 29 nce of informa informa informa 2017 Urine tion in tion in tion in 3:40 PM source source source data data data Bilirub NEGATIV NEG No No No Dec 29 in E informa informa informa 2016 [Presen tion in tion in tion in 3:40 PM ce] in source source source Urine data data data by Test strip Erythro NEGATIV NEG No No No Dec 29 cytes E informa informa informa 2016 [Presen tion in tion in tion in 3:40 PM ce] in source source source Urine data data data Color DK YELLOW No No No Dec 29 of YELLOW informa informa informa 2017 Urine tion in tion in tion in 3:40 PM source source source data data data Glucose NEG No No No Dec 29 [Mass/vol informati informati informati 2016 3:40 ume] in on in on in on in PM Urine by source source source Test data data data strip Ketones TRACE NEG mg/dL Abnorma No Aug 13 l informa 2016 [Presen tion in 3:40 PM ce] in source Urine data by Automat ed test strip Mucus NEGATIV NEG No No No Dec 29 [Presen E informa informa informa 2016 ce] in tion in tion in tion in 3:40 PM Urine source source source sedimen data data data t by Light microsc opy Nitrite NEGATIV NEG No No No Dec 29 E informa informa informa 2016 [Presen tion in tion in tion in 3:40 PM ce] in source source source Urine data data data by Test strip pH of 5.0 - 8.5 No Normal No Dec 29 Urine informati informati 2016 3:40 on in on in PM source source data data Protein NEG mg/dL No No Dec 29 [Mass/vol informati informati 2016 3:40 ume] in on in on in PM Urine by source source Automated data data test strip Specific 1.005 - No Normal No Dec 29 gravity 1.030 informati informati 2016 3:40 of Urine on in on in PM source source data data Urobili 0.2 NEG E.U./dL No No Dec 29 nogen informa informa 2016 [Presen tion in tion in 3:40 PM ce] in source source Urine data data by Test strip
[2017-04-03 14:32] LABS: BUN 35 mg/dL (7-18); GFR (ESTIMATED) 53 ML/MIN (>60)
--- OUTSIDE RECORDS SUMMARY | 2017-04-03 14:38 | External Medical Summary Rpt | CCD ---
Author Author , YAYA JAVIER Address Unknown Phone [email or web address] Care Team Providers Care Choirmaster Name Role Phone [facility] Purpose Continuity of Care Document - 07-19-2012 through 2016 Problems Code Diagnosis DOS Provider Status 486 [facility] J20.9 ACUTE BRONCHITIS, UNSPECIFIED M25.551 PAIN IN [...] SI 73 -2 NO 90 6- Lo NC 35 20 ng IL 01 13 er [...] PA ve 25 -1 00 TA B NC 51 11 2 No AV 07 -2 [...] ti S/ ve 0. 1 ML AL NC 51 03 5 No AV 07 -0 [...] YC ve OL 33 50 PO WD NC 51 03 4 No AV 07 -0 [...] MATILDE Downs ([place]) 3 16:32 3 11:30 [facility] Inpatient IMP ([place]) 3 09:00 3 10:55 Inpatient IMP Torsten Membreno ([place]) 3 20:50 3 09:00 [facility]
--- OUTSIDE RECORDS SUMMARY | 2017-04-03 14:38 | External Medical Summary Rpt | CCD ---
Author Author , YAYA JAVIER Address Unknown Phone [email or web address] Care Team Providers Care Physician Obstetrician Name Role Phone [facility] Purpose Continuity of Care Document - 07-19-2012 through 2016 Problems Code Diagnosis DOS Provider Status 486 [facility] J20.9 ACUTE BRONCHITIS, UNSPECIFIED M25.551 PAIN [...] SI 73 -2 NO 90 6- Lo MA 35 20 ng IL 01 13 er [...] PA ve 25 -1 00 TA B MA 51 11 2 No AV 07 -2 [...] ti S/ ve 0. 1 ML AL MA 51 03 5 No AV 07 -0 [...] YC ve OL 33 50 PO WD MA 51 03 4 No AV 07 -0 [...] MATILDE Downs ([place]) 3 16:32 3 11:30 [facility] Inpatient [place] ([place]) 3 09:00 3 10:55 Inpatient IMP Torsten Membreno ([place]) 3 20:50 3 09:00 [facility]
--- OUTSIDE RECORDS SUMMARY | 2017-04-03 14:39 | External Medical Summary Rpt | CCD ---
Author Author , YAYA JAVIER Address Unknown Phone [email or web address] Immunization Name Date Rout CVX Reac Dose Comm Prov Is Faci e tion ent ider Refu lity Give sed n Infl 10-2 Intr 135 0.5 Hist D049 No D049 uenz 8-20 amus mL oric 01 01 a, 17 cula al High r Info rmat Dose ion - Sour ce Unsp ecif ied
--- OUTSIDE RECORDS SUMMARY | 2017-04-03 14:39 | External Medical Summary Rpt | CCD ---
Author Author , YAYA JAVIER Address Unknown Phone [email or web address] Immunization Name Date Rout CVX Reac Dose Comm Prov Is Faci e tion ent ider Refu lity Give sed n Infl 10-2 Intr 135 0.5 Hist D049 No D049 uenz 8-20 amus mL oric 01 01 a, 17 cula al High r Info rmat Dose ion - Sour ce Unsp ecif ied
[2017-04-03 15:27] LABS: NEUTROPHILS 90 % (42-76)
--- NOTE | 2017-04-03 15:32 | Emergency Room Report ---
History of Present Illness Time Seen by [id number] Presenting Problem in Triage Pt arrived:Ambulance Stretcher Presenting Problem:PT WITH RESPIRATORY ISSUES; FAMILY THINKS HAS PNEUMONIA; RECENT PLACEMENT OF AZITHROMYCIN ON 03/25/17 Onset of symptoms date/time:/ or onset unknown for:MEDICAL HX UNKNOWN Treatment Prior to Arrival: PHILOSOPHY LECTURER Provided by: Sepsis Risk Assessment: Temp: 97.8 B/P: 122/57 MAP: 84 Pulse: 65 Resp: 20 Recent fever? Y Clinical Suspician of Infection? N Mental Status: 1 - Regular (Normal Baseline) Sepsis Risk:Low Sepsis Risk Have you (or family members/close friends) recently traveled outside the [place]? N If Yes, where/when: Have you had exposure to infectious disease within the past month? TB? Other? Specify: Source RN notes reviewed, family, RN/MD Exam Limitations no limitations Comment This is a 81-year-old male patient with history of Parkinson disease/ dementia brought in by EMS for generalized weakness, decreased appetite, productive cough, for the past 7-10 days. has also noticed a large decubitus ulcer on his presacral area. He has completed a course of Z-Joaquín that was started on 03.25.17, without any significant improvement. Patient was initially diagnosed with Parkinson disease approximately 15 years ago and he has been gradually declining since. His been bedridden for a number of years with assisting his daily needs. ALLERGIES Coded Allergies: No Known Allergies (04/03/17) Home Medications Reported Medications MUPIROCIN 2% (Bactroban Oint) 1 ERNA TP DAILY Pravastatin Sodium (Pravastatin 20MG) 20 MG PO QHS Benazepril Hcl (Benazepril HCl) 40 MG PO DAILY History Medical History General CAD? No Angina: No MA: No Hypertension? Yes Hyperlipidemia? Yes CHF? No DVT? No PE? No COPD? No Asthma? No Anemia? No GERD? No Gastric ulcers? No GI Bleed? No Hernia? Yes Thyroid Problems? No Hypothyroidism? No CVA? No Seizures? No Diabetes? No Renal Insuffiency? No End Stage Renal Disease? No UTI? No Stones? No GB Disease: No Nephritic Syndrome? No Asplenia? No Hepatitis? No Sickle Cell Disease? No Arthritis? No Migraines? No Cataracts? No Glaucoma? No MRSA? No HIV? No TB? No Anxiety? No Depression? No Cancer? Yes Site: BASAL CELL More? Yes Additional hx: PARKINSONS Immunization Hx Ped.Immunizations UTD Yes DT/Tetanus Unknown Flu 2013-14FSN Pneumonia Received In Past Surgical Hx Previous Surgery?Y HERNIA X2 BASAL CELL REMOVED VASECTOMY Family History Family Hx Diabetes No CAD No Hypertension Yes Hyperlipidemia Yes Cancer Yes TB No Social History Smoking Hx Smoker: Former Smoker Tobacco: No Type Cigarettes Packs/day N/A Are you/the child exposed to second-hand smoke: No Alcohol Alcohol: No Review of Systems All Other Systems Reviewed and Negative Respiratory cough, shortness of breath, wheezing Gastrointestinal other (decreased appetite) Physical Exam Vital Signs Vital Signs Date Time Temp Pulse Resp B/P Pulse O2 O2 Flow FiO2 Ox Delivery Rate 04/03 1714 117 04/03 1714 95 ROOM AIR 04/03 1657 99.8 117 18 121/47 04/03 1653 99.8 117 18 121/47 95 ROOM AIR 04/03 1627 98 18 112/72 99 04/03 1617 97.6 99 18 123/64 94 04/03 1505 97.8 65 20 122/57 97 04/03 1431 100 ROOM AIR 04/03 1345 97.4 112 18 123/65 94 General Appearance cachetic, fatigued, lethargic, thin Eye Exam - bilateral eye PERRL, bilateral eye EOMI, bilateral eye other (sunken) Respiratory Status Yes: trachea midline, chest symmetrical, tender on palpation. No: respiratory distress. Lung Sounds bilateral: rhonchi, wheezing. left: wheezing. right: wheezing. Cardiovascular no peripheral edema, tachycardia Peripheral Pulses Pulses normal Yes Back presacral decubitus ulcer 7x7 see skin description Extremities non-tender, normal range of motion, normal inspection Neurologic alert, nonverbal, confused, consistent with dementia, with fine tremors of upper extremity, consistent with Parkinson's disease Mental status depressed affect Skin presacral area with erythema, 7 x 7 cm, with central ulceration, stage III, full-thickness Medical Decision Making LABS/Meds/Orders Pt receiving controlled substance in ED? No Comment 1530-case d/w Dr. Downs, advised of patient's condition and findings, agreeable with hospitalization. Care transferred to Dr. Downs at this time. I will write temporary admission orders per hospital protocol. Upon patient's presentation to the floor the unit nurse will contact Dr. Downs in order to obtain full inpatient admission orders. Results/Orders Laboratory Tests 04/03/17 1410: Lactic Acid 2.7 H 04/03/17 1330: Sodium 152 *H, Potassium 4.3, Chloride 114 H, Carbon Dioxide 30, BUN 35 H, Creatinine 1.3, Estimated Creat Clear 35 L, Estimated GFR (MDRD) 53, Glucose 117 H, Calcium 9.4, Total Bilirubin 0.5, AST 22, ALT 22, Alkaline Phosphatase 101, Creatine Kinase 534 H, CK-MB (CK-2) Rel Index 1.0, CK and CKMB Interp 5.2 H, Troponin I < 0.02, Total Protein 7.3, Albumin 2.8 L, Globulin 4.5 H, Albumin/Globulin Ratio 0.6 L, WBC 15.1 H, RBC 4.20 L, Hgb 12.0 L, Hct 37.8 L, MCV 89.8, RDW 13.0, Plt Count 297, MPV 9.2, Gran % 87.0 H, Gran # 13.1 H, Total Counted 100, Lymphocytes % 8.0 L, Monocytes % 4.3, Eosinophils % 0.6, Basophils % 0.2, Neutrophils 90 H, Band Neutrophils 1, Lymphocytes (Manual) 4 L, Lymphocytes # 1.2, Monocytes (Manual) 5, Monocytes # 0.6, Eosinophils # 0.1, Basophils # 0.0, Platelet Estimate NORMAL, PUBS MCHC 31.8, MCH 28.6 Current Medication Orders Sig/Zahra Start time Last Medication Dose Route Stop Time Status Admin Levofloxacin/Dextrose 100 ML Q24H 04/04 1400 AC IV 04/07 1500 Lisinopril 40 MG DAILY 04/04 0900 AC PO Carbidopa/Levodopa 1 TABLET TID 04/03 2100 AC 04/03 PO 2053 Metronidazole 100 ML Q8 04/03 2100 CAN IV Pravastatin Sodium 20 MG QHS 04/03 2100 CAN PO Ropinirole HCl 2 MG TID 04/03 2100 AC 04/03 PO 2053 Clindamycin Phosphate 600 MG Q6H 04/03 1715 AC 04/03 Sodium Chloride 100 ML IV 2333 Metronidazole 100 ML .STK-MED ONE 04/03 1710 DC IV Sodium Chloride 1,000 ML .STK-MED ONE 04/03 1706 DC IV Sodium Chloride 10 ML PRN PRN 04/03 1645 AC IV Sodium Chloride 1,000 ML .Q8H 04/03 1630 AC 04/03 IV 1708 Metronidazole 100 ML ONCE ONE 04/03 1545 DC 04/03 IV 04/03 1644 1711 Levofloxacin/Dextrose 150 ML .STK-MED ONE 04/03 1505 DC IV Sodium Chloride 1,000 ML .[id number] 04/03 1445 DC IV Sodium Chloride 10 ML PRN PRN 04/03 1445 AC IV 04/04 1435 Aspirin 325 MG ONCE ONE 04/03 1400 DC PO 04/03 1401 Levofloxacin/Dextrose 150 ML ONCE ONE 04/03 1400 DCr IV 04/03 1529 Sodium Chloride 10 ML PRN PRN 04/03 1400 AC IV Albuterol/Ipratropium 0 .STK-MED ONE 04/03 1358 DC INH Orders Procedure Date/time Status COMPLETE METABOLIC PANEL 04/04 0600 Active CBC WITH AUTO DIFF 04/04 0600 Active DIET-REGULAR ( TOLERATED) 04/03 D Active ADMITTED PT IS ACTUALLY IN BED 04/03 1654 Active Decision to admit 04/03 1552 Active LACTIC ACID FOLLOW UP 04/03 1508 Complete RT Pulse Oximetry, Provide 04/03 1431 Active RT O2 Installation/Change Set 04/03 1431 Active RT O2 Therapy, Monitor/Maintai 04/03 1431 Active RT Aerosol Treatment, Provide 04/03 1431 Active RT Aerosol Treatment, Provide 04/03 1431 Active CULTURE, SPUTUM 04/03 1401 Active ELECTROCARDIOGRAM REQUEST 04/03 1348 Active IV SALINE LOCK 04/03 1348 Active RADIO INTERFERENCE TROUBLE SHOOTER 04/03 1348 Active CULTURE, BLOOD 04/03 1348 Active LACTIC ACID 04/03 1348 Complete COMPLETE METABOLIC PANEL 04/03 1348 Complete CBC WITH AUTO DIFF 04/03 1348 Complete CARDIAC ENZYMES 04/03 1348 Complete DIFFERENTIAL-WBC 04/03 1330 Complete SPEECH SWALLOW EVAL.&TREAT REQ 04/03 UNK Active ADMIT PATIENT 04/03 UNK Active 12 LEAD EKG-RYAN (INITIAL) 04/03 UNK Active PULSE OXIMETRY REQUEST 04/03 UNK Active OXYGEN REQUEST 04/03 UNK Active VITAL SIGNS 04/03 UNK Active COMPLIANCE INTERN 04/03 UNK Active POM NURSE SIMI SEVILLA ORDER 04/03 UNK Active CODE STATUS 04/03 UNK Active PATIENT ACTIVITY ORDER 04/03 UNK Active CULTURE, WOUND 04/03 UNK Active CM/EKG CM/bacteriology technician Rhythm Sinus Tachycardia Rate 105 Ectopy No Comments No acute ischemic changes EKG rate (105), rhythm (tachy), no evid. of ischemic chgs, no ectopy XRAY/CT/US XRAY/CT/US XRAY chest XR interpretation by reviewed by me Xray Results no infiltrates, normal heart size, normal lung inflation elaina, chronic changes Departure Departure Time of Disposition 1543 Disposition Still a Patient Clinical Impression Primary Impression: Dehydration Secondary Impressions: Acute bronchitis Qualifiers: Bronchitis organism: unspecified organism Qualified Code: J20.9 - Acute bronchitis, unspecified Decubitus ulcer Qualifiers: Pressure ulcer location: lower back Pressure ulcer stage: stage 3 Laterality: right Qualified Code: L89.133 - Pressure ulcer of right lower back, stage 3 Failure to thrive Qualifiers: Failure to thrive age range: in adult Qualified Code: R62.7 - Adult failure to thrive Hypernatremia Condition STABLE Referrals Mabel Downs MD (Family) ED Critical [place] [address]
[2017-04-03 16:53] VITALS: BP 121/47
[2017-04-03] MEDS ORDERED: ROPINIROLE HYDRO2 MG PO (16:53)
[2017-04-03] MEDS ORDERED: LEVOD PO (16:53)
[2017-04-03] MEDS ORDERED: CARBIDOPA PO (16:53)
[2017-04-03] MEDS ORDERED: BACTROBAN2% TP (16:53)
[2017-04-03 16:57] VITALS: BP 121/47
--- NOTE | 2017-04-03 17:04 | HISTORY AND PHYSICAL REPORT ---
History and Physical ([facility]) Date of admission: 04/03/17 Chief complaint: cough, SOA History: History of Present Illness: Mr. Agarwal is a 81yo male with a hx of Parkinsons who has had a cough for the past few weeks. He was seen in the office once and started on phenylephrine for nasal congestion. He did not improve therefore zithromax was called to the pharmacy. This did not seem to work either and he continued to sound more congested and get more SOA. He was brought to the ER for evaluation and was felt to have a bronchitis or possible pneumonia. He also has a decubitus ulcer that is stage 3 on his buttock. His sodium, WBC, and lactic acid were elevated. He was admitted for further evaluation and treatment. At the time of H&P, patient's had left so information was obtained from ER nurse and office notes as patient is not verbal. Past Medical History: Medical History: CAD? No Angina: No NE: No Hypertension? Yes Hyperlipidemia? Yes CHF? No DVT? No PE? No COPD? No Asthma? No Anemia? No GERD? No Gastric ulcers? No GI Bleed? No Hernia? Yes Thyroid Problems? No Hypothyroidism? No CVA? No Seizures? No Diabetes? No Renal Insuffiency? No UTI? No Stones? No GB Disease: No Nephritic Syndrome? No Asplenia? No Hepatitis? No Sickle Cell Disease? No Arthritis? No Migraines? No Cataracts? No Glaucoma? No MRSA? No HIV? No TB? No Anxiety? No Depression? No Cancer? Yes Site: BASAL CELL More? Yes Additional hx: PARKINSONS Surgical history: Previous Surgery?Y HERNIA X2 BASAL CELL REMOVED VASECTOMY Allergies: Coded Allergies: No Known Allergies (04/03/17) Family History: Family history: Postive for: CAD, HTN, cancer. Social History: Smoking Hx Tobacco: No Smoker: Former Smoker Type: Cigarettes Packs/day: N/A Are you exposed to second hand No Alcohol: Alcohol: No Hx of Drug Use: Drug Use? No Review of Systems: Patient unresponsive? No (Patient nonverbal) Physical Exam: Vital signs: 1ST Vital Signs Result Date Time Pulse Ox 94 04/03 1345 B/P 123/65 04/03 1345 Temp 97.4 04/03 1345 Pulse 112 04/03 1345 Resp 18 04/03 1345 O2 Delivery ROOM AIR 04/03 1431 Exam: General appearance: awake, tries to answer questions but not able to speak Eyes: PERRLA ENT: nose normal, dry mucous membranes, multiple abrasions and cuts on the pharynx from suctioning in the ER Neck: non-tender, no carotid bruit, supple Cardiovascular: regular rate & rhythm Respiratory: rhonchi bilaterally ABD: non-distended, normal bowel sounds, no rebound, soft, no tenderness, no guarding Extremities: no peripheral edema Musculoskeletal: unable to do MS exam d/t Parkinson's, patient has a definite tremor and contractures as well of the arms and legs Skin: right buttock with a stage 3 ulcer Neuro: masklike facies, tremor Lab data: Labs: Laboratory Tests 04/03/17 1410: Lactic Acid 2.7 H 04/03/17 1330: Sodium 152 *H, Potassium 4.3, Chloride 114 H, Carbon Dioxide 30, BUN 35 H, Creatinine 1.3, Estimated Creat Clear 35 L, Estimated GFR (MDRD) 53, Glucose 117 H, Calcium 9.4, Total Bilirubin 0.5, AST 22, ALT 22, Alkaline Phosphatase 101, Creatine Kinase 534 H, CK-MB (CK-2) Rel Index 1.0, CK and CKMB Interp 5.2 H, Troponin I < 0.02, Total Protein 7.3, Albumin 2.8 L, Globulin 4.5 H, Albumin/Globulin Ratio 0.6 L, WBC 15.1 H, RBC 4.20 L, Hgb 12.0 L, Hct 37.8 L, MCV 89.8, RDW 13.0, Plt Count 297, MPV 9.2, Gran % 87.0 H, Gran # 13.1 H, Total Counted 100, Lymphocytes % 8.0 L, Monocytes % 4.3, Eosinophils % 0.6, Basophils % 0.2, Neutrophils 90 H, Band Neutrophils 1, Lymphocytes (Manual) 4 L, Lymphocytes # 1.2, Monocytes (Manual) 5, Monocytes # 0.6, Eosinophils # 0.1, Basophils # 0.0, Platelet Estimate NORMAL, PUBS MCHC 31.8, MCH 28.6 Microbiology 04/03 141 BLOOD: Anaerobic Blood Culture - RECD 04/03 1418 BLOOD: Aerobic Blood Culture - RECD 04/03 1412 SPUTUM: Sputum Culture - RES 11/16 1412 SPUTUM: Gram Stain - RES 04/03 1410 BLOOD: Anaerobic Blood Culture - RECD 04/03 141 BLOOD: Aerobic Blood Culture - RECD Radiology results: Results: CXR - nothing acute Diagnosis(es): 1. Acute bronchitis Status: Acute 2. Elevated CPK Status: Acute 3. Elevated lactic acid level Status: Acute 4. Dehydration Status: Acute 5. Hypernatremia Status: Acute 6. Decubitus ulcer 7. Parkinson disease Status: Chronic 8. Hypertension Status: Chronic 9. Hyperlipemia Status: Chronic Plan: Will start on levaquin and clindamycin as there may be an aspiration risk. Will increase IVF rate and start on some of his home meds. (Reina Nuñez) Past Medical History: Medications: Reported Medications MUPIROCIN 2% (Bactroban Oint) 1 ERNA TP DAILY Pravastatin Sodium (Pravastatin 20MG) 20 MG PO QHS Benazepril Hcl (Benazepril HCl) 40 MG PO DAILY Diagnosis(es): 1. Acute bronchitis Status: Acute 2. Elevated CPK Status: Acute 3. Elevated lactic acid level Status: Acute 4. Dehydration Status: Acute 5. Hypernatremia Status: Acute 6. Parkinson disease Status: Chronic 7. Hypertension Status: Chronic 8. Hyperlipemia Status: Chronic 9. Sacral decubitus ulcer 10. Protein calorie malnutrition Plan: Pt seen and examined. He is resting comfortably at present. He appears dehydrated with dry mucus membranes. Currently receiving IVF of 1/2 NS. Clinically he has pneumonia, likely with component of aspiration. Flagyl changed to Clindamycin. Plan to repeat CXR after hydration. Will hold Pravastatin due to elevated CPK and possible rhabdomyolysis. Wound care consult for his decubitus and PRODUCTION CONTROL TECHNOLOGIST eval. (Mabel Downs MD) at 1704 at [phone]
--- NOTE | 2017-04-03 19:21 | PHARMACY CLINIC NOTE ---
Patient Demographics Patient Demographics Admission date: 04/03/17 Date: 04/03/17 Time: 1919 Allergies Coded Allergies: No Known Allergies (04/03/17) HEIGHT- FT: 5 IN: 7.00 K.122 VTE General Information Labs: Laboratory Tests 04/03 1330 Hematology Hgb (14.1 - 18.0 g/dL) 12.0 L Hct (42.0 - 52.0 %) 37.8 L Plt Count (142 - 424 K/mm3) 297 Disclaimer The following section includes nursing documentation that has been pulled in for pharmacy review. Patient's VTE score: 2 Patient's VTE Risk: VERY LOW RISK Clinical trial participant? No VTE prophylaxis NQF [id number] VTE prophylaxis ordered? Yes Type of prophylaxis/treatment: SIMI at 1921
[2017-04-03 19:46] VITALS: BP 105/56
[2017-04-03 21:01] VITALS: BP 105/56
[2017-04-03 23:51] VITALS: BP 133/73
[2017-04-04 03:48] VITALS: BP 132/72
[2017-04-04 07:05] LABS: HEMOGLOBIN 10.8 g/dL (14.1-18.0); LYMPH # 0.9 K/mm3 (0.7-4.5); LYMPH % 6.5 % (10-50)
[2017-04-04 07:32] VITALS: BP 133/73
--- NOTE | 2017-04-04 08:18 | ACUTE CARE PROGRESS NOTE (QUA) ---
Progress Notes Subjective Date 04/04/17 Time 0814 Note Pt seems to be breathing better today. He does wake up easily and smiled this am. He still appears not to feel well. Objective Findings Last VS-Temp:98.9 B/P:133/73 Pulse:122 Resp:20 SaO2:95 OXYGEN Last weight lbs:110 oz:8 K.122 Method:Bed Scales Laboratory Tests 04/04/17 06: Creatine Kinase 2183 H 04/04/17 0619: Sodium 149 H, Potassium 3.8, Chloride 115 H, Carbon Dioxide 26, BUN 35 H, Creatinine 1.3, Estimated Creat Clear 33 L, Estimated GFR (MDRD) 53, Glucose 109 H, Calcium 8.6, Total Bilirubin 0.7, AST 52 H, ALT 25, Alkaline Phosphatase 83, Total Protein 6.1 L, Albumin 2.2 L, Globulin 3.9 H, Albumin/ Globulin Ratio 0.6 L, WBC 14.5 H, RBC 3.80 L, Hgb 10.8 L, Hct 33.9 L, MCV 89.2, RDW 13.2, Plt Count 227, MPV 9.1, Gran % 87.9 H, Gran # 12.7 H, Lymphocytes % 6.5 L, Monocytes % 5.2, Eosinophils % 0.3, Basophils % 0.1, Lymphocytes # 0.9, Monocytes # 0.8, Eosinophils # 0.0, Basophils # 0.0, PUBS MCHC 31.8, MCH 28.4 04/03/17 1815: Lactic Acid 1.6 04/03/17 1410: Lactic Acid 2.7 H 04/03/17 1330: Sodium 152 *H, Potassium 4.3, Chloride 114 H, Carbon Dioxide 30, BUN 35 H, Creatinine 1.3, Estimated Creat Clear 35 L, Estimated GFR (MDRD) 53, Glucose 117 H, Calcium 9.4, Total Bilirubin 0.5, AST 22, ALT 22, Alkaline Phosphatase 101, Creatine Kinase 534 H, CK-MB (CK-2) Rel Index 1.0, CK and CKMB Interp 5.2 H, Troponin I < 0.02, Total Protein 7.3, Albumin 2.8 L, Globulin 4.5 H, Albumin/Globulin Ratio 0.6 L, WBC 15.1 H, RBC 4.20 L, Hgb 12.0 L, Hct 37.8 L, MCV 89.8, RDW 13.0, Plt Count 297, MPV 9.2, Gran % 87.0 H, Gran # 13.1 H, Total Counted 100, Lymphocytes % 8.0 L, Monocytes % 4.3, Eosinophils % 0.6, Basophils % 0.2, Neutrophils 90 H, Band Neutrophils 1, Lymphocytes (Manual) 4 L, Lymphocytes # 1.2, Monocytes (Manual) 5, Monocytes # 0.6, Eosinophils # 0.1, Basophils # 0.0, Platelet Estimate NORMAL, PUBS MCHC 31.8, MCH 28.6 Microbiology 04/03 141 BLOOD: Anaerobic Blood Culture - RECD 04/03 1418 BLOOD: Aerobic Blood Culture - RECD 04/03 1412 SPUTUM: Sputum Culture - RES 04/03 1412 SPUTUM: Gram Stain - RES 04/03 1410 BLOOD: Anaerobic Blood Culture - RECD 04/03 141 BLOOD: Aerobic Blood Culture - RECD Exam General appearance: awake, not verbal Cardiovascular: regular rhythm, tachycardic Respiratory: less rhonchi ABD: non-distended, normal bowel sounds, no rebound, soft, no tenderness, no guarding Extremities: no peripheral edema Assessment/Plan Problem List 1. Acute bronchitis Status: Acute 2. Elevated CPK Status: Acute 3. Elevated lactic acid level Status: Acute 4. Dehydration Status: Acute 5. Hypernatremia Status: Acute 6. Parkinson disease Status: Chronic 7. Hypertension Status: Chronic 8. Hyperlipemia Status: Chronic 9. Sacral decubitus ulcer 10. Protein calorie malnutrition 11. Rhabdomyolysis Plan: Pts CPK is much more elevated this am. His statin was discontinued. Will continue to rehydrate and will continue abx. This inpt stay is expected to cross 2 MNs from start of care Yes (Reina Nuñez) Subjective Date 04/04/17 Assessment/Plan Problem List 1. Acute bronchitis Status: Acute 2. Elevated CPK Status: Acute 3. Elevated lactic acid level Status: Acute 4. Dehydration Status: Acute 5. Hypernatremia Status: Acute 6. Parkinson disease Status: Chronic 7. Hypertension Status: Chronic 8. Hyperlipemia Status: Chronic 9. Sacral decubitus ulcer 10. Protein calorie malnutrition 11. Rhabdomyolysis Plan: Pt seen and examined. He is certainly a little more alert but not at baseline. Lungs sound better. Will repeat CXR after hydration. Continue to monitor renal function and CPK. (Mabel Downs MD) at 0817 at 1037
--- NOTE | 2017-04-04 10:55 | RADIOLOGY REPORT PS360 ---
CHEST-PORTABLE HISTORY: F/u Patient Age: 81 years: Male Ordering Physician: Mabel Downs MD TECHNIQUE: AP portable upright chest is compared to 04/03/2017 and 12/29/2016. COMPARISON : Yesterday's chest film 04/03/2017 & 12/29/2016 CXR FINDINGS The pneumonic infiltrate at the right infrahilar region is slightly more evident than yesterday study but this may be due to the less rotated character and better inspiration of today's CXR. The infiltrate extends inferiorly into the right lung base right lower lobe but does not obscure right hemidiaphragm. Slight progression of infiltrate at the left lung base since yesterday particularly at the medial left base where this infiltrate now partially obscures the descending aorta shadow at the LLL. Retrocardiac region. There also appears to be some additional atelectasis here with slight elevation left hemidiaphragm now evident Upper lung mosqueda appear stable and clear. Heart upper normal in size with slight left ventricular configuration. Borderline cardiomegaly. Colette and mediastinal structures unremarkable. There is still some slight leftward rotation on this chest film. IMPRESSION...... Bibasilar pneumonia/ Appears to minimal radiograph progression of infiltrate at both lung bases since yesterday Likely megaly
[2017-04-04 11:51] VITALS: BP 107/61
--- NOTE | 2017-04-04 12:07 | ST BEDSIDE DYSPHAGIA EVAL ---
SUBJECTIVE-DYSPHAGIA Date: 04/04/17 Time: 1110 Eval Type: Initial Certification - Admitted Date: 04/03/17 Primary Diagnosis: HYPERNATREMIA Reason for Consult: Dyspyhagia Pt/Caregiver Concerns: dysphagia Onset of symptoms- MEDICAL HX UNKNOWN Symptoms have worsened? n improved? n resolved? n since onset. Current Diet: Regular as tolerated Allergies Coded Allergies: No Known Allergies (04/03/17) Home Medications Reported Medications MUPIROCIN 2% (Bactroban Oint) 1 ERNA TP DAILY Pravastatin Sodium (Pravastatin 20MG) 20 MG PO QHS Benazepril Hcl (Benazepril HCl) 40 MG PO DAILY - Social Hx: Marital Status: M Use of: Tobacco? N Alcohol? N Drugs? N Surgical Hx: Previous Surgery? Y HERNIA X2 BASAL CELL REMOVED VASECTOMY Past Medical Hx: Seizures? N CVA? N Angina? N NM? N CHF? N Hyperlipidemia? Y Pacemaker? N COPD? N TB? N Ulcers? N GB Disease? N Hernia? Y UTI? N Hepatitis? N Kidney Stones? N Glaucoma? N Cataracts? N Diabetes? N Insulin Dependent? Cancer? Y Site: BASAL CELL End Stage Renal Disease? N Asplenia? N Nephritic Syndrome? N Sickle Cell Disease? N HIV? N Other: PARKINSON Current Medical Hx: Is this assessment r/t stroke? No OBJECTIVE COMMUNICATION/COGNITION Barriers to communication/cog? Yes Orientation POS: Name (replied "yes" to name). NEG: Place, Day, Date, Year. Follows Commands POS: Follows 1-step commands. NEG: Follows 2-step commands. Able to remember swallow strategies? No Intelligibility Poor Barriers to communication: Mr. Agarwal did not respond verbally to any questions other than is your name "Heri Agarwal". Nursing reports he is more communicative at time than other times. ORAL-MOTOR STRUCTURE/FUNCTION Structure/Function Impaired: Lingual. WFL: Labial, Buccal. Facial Asymmetry None Laryngeal Function Weak: Voluntary Cough, Throat Clearing. Vocal Quality unalbe to assess Dentition Poor dentition RESPIRATORY STATUS/HISTORY Is resp status/hx a concern? Yes Requires Oxygen: Cannula Breathes from mouth? Yes Risk-fatigue due to comp.resp? Yes DYSPHAGIA SIGNS W/CONSISTENCY Any S/S of Dysphagia? Yes Unable to Form Bolus- Thin Coughing- Thin, Pureed Delayed Oral Transit Time- Pureed ASSESSMENT/PLAN ASSESSMENT Impression Mr. Agarwal, a 81 year old male was seen at bedside for a clinical swallowing evaluation. Mr. Agarwal' nurse reports he was helped with breakfast and did not eat much, he has a dx of Parkinson's Disease. She reports his alertness and orientation are dependent on time of day. He was more alert and oriented during the night. His chest xray did not show pneumonia today. Mr. Agarwal' relayed to the RN that she feeds him soft foods with high protein. Mr. Agarwal responded to his name and replied yes when asked if his name was "Heri Agarwal". He opened his eyes to look when he was spoken to. He did not verbally respond to other questions during the assessment. He presented with a wet cough prior to introducing anything by mouth. He was given water via straw. He was able to close lips on straw but did not suck water up straw. He was given thin water via spoon. He closed mouth on the spoon and swallowed water. Swallow was audible, and he coughed after swalow. Honey thickened water was presented via spoon. He did not cough after swallow with honey thickened water. Applesauce was given via spoon. He swallowed applesauce. He did cough after swallow, but it was difficult to determine if the cough was related to swallow or if it was related to the coughing from mucus. Nursing reported that he was alert during med pass this morning and did not cough with applesauce with meds mixed in. It is recommended that Mr. Agarwal be helped with meals, that his diet be changed to mechanical soft with ground meat and honey thickened liquids. If Mr. Agarwal continues to cough duirng meals or whith medications and continues to display signs of dysphagia at bedside it may be nescessary to complete a MBS to rule out aspiration and to visualize swallow. Mr. Agarwal should eat meals slowly to decrease fatigue. Speech therapy will follow up on diet change progress with nursing during hospital stay. Thank you for this consult. PLAN RECOMMENDATIONS Further skill serv. indicated No SWALLOW GUIDELINES High Aspiration Risk, Crush Meds as Allowed, Oral Care Pre/ After Meals, Chk Mouth for Pocketing, Assist w/All Meals, Eat at Slow Rate PATIENT/CAREGIVER EDUCATION Able-recall/restate what told? No Pt unable to ind. understands due to mental status, due to physical status Reinforcement needed? No RN educated on Diet Consistency, Swallow Guidelines, Oral Care Rehab Medicare G Code Plan Medicare/G Code eligible? Yes Therapy Discipline Plan: BACCARAT MANAGER PLAN OF CARE G Code Current Status: SWALLOWING (G8996) Current Status Modifier: 60%-79% IMPAIRED G Code Goal Status: SWALLOWING (G8997) Goal Status Modifier: 60%-79% IMPAIRED (CL) G Code Discharge Status: SWALLOWING (G8998) Discharge Status Modifier: 60%-79% IMPAIRED (CL) If pt's [facility] benefits exhausted If patient's Medicare benefits are exhausted, please review: #Min Spent: 20 at 1201
[2017-04-04 15:24] VITALS: BP 124/69
[2017-04-04 20:15] VITALS: BP 101/47
[2017-04-04 20:30] VITALS: BP 101/47
[2017-04-05] VITALS: BP 106/54
[2017-04-05 04:21] VITALS: BP 135/74
[2017-04-05 06:59] LABS: LYMPH # 1.3 K/mm3 (0.7-4.5); LYMPH % 10.5 % (10-50)
[2017-04-05 07:13] LABS: HEMOGLOBIN 9.8 g/dL (14.1-18.0)
--- NOTE | 2017-04-05 08:10 | ACUTE CARE PROGRESS NOTE (QUA) ---
Progress Notes Subjective Date 04/05/17 Time 0807 Note Pt sleeping and snoring this am. He did not wake up with exam. Objective Findings Last VS-Temp:98.8 B/P:135/74 Pulse:98 Resp:20 SaO2:96 OXYGEN Last weight lbs:110 oz:8 K.122 Method:Bed Scales Laboratory Tests 04/05/17 0632: Sodium 144, Potassium 3.6, Chloride 111 H, Carbon Dioxide 25, BUN 30 H, Creatinine 1.1, Estimated Creat Clear 39 L, Estimated GFR (MDRD) 65, Glucose 99 , Calcium 8.5, Total Bilirubin 0.8, AST 69 H, ALT 9 L, Alkaline Phosphatase 77 , Creatine Kinase 2921 H, Total Protein 5.7 L, Albumin 2.0 L, Globulin 3.7 H , Albumin/Globulin Ratio 0.5 L, WBC 11.9 H, RBC 3.42 L, Hgb 9.8 L, Hct 30.5 L, MCV 89.3, RDW 12.9, Plt Count 209, MPV 8.5, Gran % 83.9 H, Gran # 10.0 H, Lymphocytes % 10.5, Monocytes % 4.7, Eosinophils % 0.7, Basophils % 0.1, Lymphocytes # 1.3, Monocytes # 0.6, Eosinophils # 0.1, Basophils # 0.0, PUBS MCHC 31.8, MCH 28.4 CXR - Bibasilar pneumonia/Appears minimal radiograph progression of infiltrate at both lung bases since yesterday Exam General appearance: lethargic Cardiovascular: regular rate & rhythm Respiratory: rhonchi bilaterally ABD: non-distended, normal bowel sounds, no rebound, soft, no tenderness, no guarding Extremities: no peripheral edema Assessment/Plan Problem List 1. Acute bronchitis Status: Acute 2. Elevated CPK Status: Acute 3. Elevated lactic acid level Status: Acute 4. Dehydration Status: Acute 5. Hypernatremia Status: Acute 6. Parkinson disease Status: Chronic 7. Hypertension Status: Chronic 8. Hyperlipemia Status: Chronic 9. Sacral decubitus ulcer 10. Protein calorie malnutrition 11. Rhabdomyolysis Plan: Sodium has normalized but CPK is climbing. CXR shows worsening pneumonia. Will discuss with Dr. Downs. This inpt stay is expected to cross 2 MNs from start of care Yes (Reina Nuñez) Subjective Date 04/05/17 Time 0907 Assessment/Plan Problem List 1. Community acquired pneumonia Status: Acute 2. Rhabdomyolysis 3. Elevated lactic acid level Status: Acute 4. Dehydration Status: Acute Assessment/Plan resolved 5. Hypernatremia Status: Acute Assessment/Plan resolved 6. Parkinson disease Status: Chronic 7. Hypertension Status: Chronic 8. Hyperlipemia Status: Chronic 9. Sacral decubitus ulcer 10. Protein calorie malnutrition Plan: He is awake at time of my exam and responds appropriately to question. He denies pain. Chest with scattered rhonchi. CXR yesterday revealed the suspected pneumonia after hydration. Sputum culture pending. CPK has increased but renal function remains good. Will continue with hydration. (Mabel Downs MD) at 0809 at 0914
[2017-04-05 12:00] VITALS: BP 125/68
[2017-04-05 15:30] VITALS: BP 104/57
[2017-04-05 19:31] VITALS: BP 122/52
[2017-04-05 19:40] VITALS: BP 125/88
[2017-04-06] VITALS (9 sets, daily range): BP systolic 120–145; BP diastolic 61–88
--- NOTE | 2017-04-06 09:38 | ACUTE CARE PROGRESS NOTE (QUA) ---
See Addendum Progress Notes Subjective Date 04/06/17 Time 0937 Note Patient with no new complaints today. Objective Findings Laboratory Tests 04/06/17 0700: Sodium 145, Potassium 4.3, Chloride 113 H, Carbon Dioxide 22, BUN 23 H, Creatinine 0.9, Estimated Creat Clear 47 L, Estimated GFR (MDRD) 81, Glucose 101, Calcium 8.0 L, Creatine Kinase 1861 H Microbiology 04/06 0545 BUTTOCK: Wound Culture - RECD Vital Signs Date Time Temp Pulse Resp B/P Pulse O2 O2 Flow FiO2 Ox Delivery Rate 04/06 0842 97.7 97 20 136/80 98 2 04/06 0745 2 04/06 0745 97.7 97 20 136/80 98 OXYGEN 2 04/06 0640 2 04/06 0600 2 04/06 0525 2 04/06 0410 2 04/06 0410 98.3 84 20 133/69 98 OXYGEN 2 04/06 0328 93 ROOM AIR 04/06 0250 2 04/06 0200 2 04/06 0100 2 04/06 0024 2 04/06 0024 98.3 87 20 125/88 97 OXYGEN 2 04/05 2300 2 04/05 2203 2 04/05 2100 2 04/05 2038 2 04/05 1940 98.3 87 20 125/88 93 2 04/05 1931 2 04/05 1931 97.9 91 20 122/52 96 OXYGEN 2 04/05 1842 2 04/05 1741 2 04/05 1530 98.5 100 20 104/57 96 OXYGEN 04/05 1459 2 04/05 1400 2 04/05 1255 2 04/05 1200 98.4 92 20 125/68 96 OXYGEN 04/05 1108 2 I&O Past 24 Hrs-ending at 0700 04/06 0700 Intake Total 7696 Output Total Balance 7696 Last VS-Temp:97.7 B/P:136/80 Pulse:97 Resp:20 SaO2:98 OXYGEN Last weight lbs:110 oz:8 K.122 Method:Bed Scales Exam General appearance: alert, no acute distress Cardiovascular: regular rate & rhythm Respiratory: good air movement, rhonchi (bilateral) ABD: normal bowel sounds, soft, no tenderness Assessment/Plan Problem List 1. Community acquired pneumonia Status: Acute 2. Rhabdomyolysis 3. Elevated lactic acid level Status: Acute 4. Dehydration Status: Acute 5. Hypernatremia Status: Acute 6. Parkinson disease Status: Chronic 7. Hypertension Status: Chronic 8. Hyperlipemia Status: Chronic 9. Sacral decubitus ulcer 10. Protein calorie malnutrition This inpt stay is expected to cross 2 MNs from start of care Yes Comments: Patient is slowly improving, continue current care. at 0986
--- NOTE | 2017-04-06 10:09 | ACUTE CARE PROGRESS NOTE (QUA) ---
Progress Notes Subjective Date 04/06/17 Time 1009 Assessment/Plan Problem List 1. Community acquired pneumonia Status: Acute 2. Rhabdomyolysis 3. Elevated lactic acid level Status: Acute 4. Dehydration Status: Acute 5. Hypernatremia Status: Acute 6. Parkinson disease Status: Chronic 7. Hypertension Status: Chronic 8. Hyperlipemia Status: Chronic 9. Sacral decubitus ulcer 10. Protein calorie malnutrition This inpt stay is expected to cross 2 MNs from start of care Yes Antibiotic Stewardship (2) Current Culture Results Microbiology 04/06 9834 BUTTOCK: Wound Culture - RECD 04/03 1418 BLOOD: Anaerobic Blood Culture - RECD 04/03 1418 BLOOD: Aerobic Blood Culture - RECD 04/03 141 SPUTUM: Sputum Culture - COMP PROTEUS MIRABILIS 04/03 141 SPUTUM: Gram Stain - COMP Infxn that will respond? Yes Right drug,dose,and route? Yes More targeted antbx? No at 1004
--- NOTE | 2017-04-06 10:09 | ACUTE CARE PROGRESS NOTE (QUA) ---
Progress Notes Subjective Date 04/06/17 Time 1009 Assessment/Plan Problem List 1. Community acquired pneumonia Status: Acute 2. Rhabdomyolysis 3. Elevated lactic acid level Status: Acute 4. Dehydration Status: Acute 5. Hypernatremia Status: Acute 6. Parkinson disease Status: Chronic 7. Hypertension Status: Chronic 8. Hyperlipemia Status: Chronic 9. Sacral decubitus ulcer 10. Protein calorie malnutrition This inpt stay is expected to cross 2 MNs from start of care Yes Antibiotic Stewardship (2) Current Culture Results Microbiology 04/06 7678 BUTTOCK: Wound Culture - RECD 04/03 1418 BLOOD: Anaerobic Blood Culture - RECD 04/03 1418 BLOOD: Aerobic Blood Culture - RECD 04/03 141 SPUTUM: Sputum Culture - COMP PROTEUS MIRABILIS 04/03 141 SPUTUM: Gram Stain - COMP Infxn that will respond? Yes Right drug,dose,and route? Yes More targeted antbx? No at 1003
[2017-04-07] VITALS (7 sets, daily range): BP systolic 125–164; BP diastolic 56–92
--- NOTE | 2017-04-07 08:24 | ACUTE CARE PROGRESS NOTE (QUA) ---
Progress Notes Subjective Date 04/07/17 Time 0816 Note No new concerns. Seems to be coughing less. Denies pain. Objective Findings Last VS-Temp:97.4 B/P:156/66 Pulse:83 Resp:20 SaO2:90 OXYGEN Last weight lbs:110 oz:8 K.122 Method:Bed Scales Sputum growing Proteus Exam General appearance: arouses and responds appropriately. No resp distress ENT: mucous membranes moist Cardiovascular: regular rate & rhythm Respiratory: few crackles right base ABD: non-distended, normal bowel sounds, soft, no tenderness Extremities: no peripheral edema Skin: normal color, warm Reviewed: vital signs, lab results, nursing notes Assessment/Plan Problem List 1. Proteus mirabilis pneumonia 2. Community acquired pneumonia Status: Acute 3. Rhabdomyolysis 4. Elevated lactic acid level Status: Acute 5. Dehydration Status: Acute 6. Hypernatremia Status: Acute 7. Parkinson disease Status: Chronic 8. Hypertension Status: Chronic 9. Hyperlipemia Status: Chronic 10. Sacral decubitus ulcer 11. Protein calorie malnutrition Plan: Repeat CXR. Probably home soon. This inpt stay is expected to cross 2 MNs from start of care Yes at 0824
--- NOTE | 2017-04-07 09:45 | RADIOLOGY REPORT PS360 ---
CHEST-PORTABLE HISTORY: F/u pneumonia ORDERING PHYSICIAN: Mabel Downs MD PATIENT AGE: 81 years COMPARISON: 04/04/2017 FINDINGS: The cardiomediastinal silhouette and pulmonary vascularity are within normal limits. Bilateral lower lobe airspace disease is once again noted consistent with bilateral lower lobe pneumonia slightly worse than when compared to the previous exam. Upper lobes are clear. IMPRESSION: Bilateral lower lobe pneumonia slightly worse
[2017-04-08 00:30] VITALS: BP 132/61
[2017-04-08 04:30] VITALS: BP 168/107
[2017-04-08 08:00] VITALS: BP 158/97
[2017-04-08] MEDS ORDERED: ALBUTEROL2.5 MG/NEB INH (08:46)
[2017-04-08] MEDS ORDERED: LEVAQUIN500 MG PO (08:50)
[2017-04-08] MEDS ORDERED: DIFLUCAN 100MG100 MG PO (08:51)
[2017-04-08] MEDS ORDERED: AEROSOL THERAPY1 DEV XX (08:52)
--- NOTE | 2017-04-08 08:57 | ACUTE CARE PROGRESS NOTE (QUA) ---
Progress Notes Subjective Date 04/08/17 Time 0854 Note Very alert this AM. Eating better. No complaints. Objective Findings Last VS-Temp:97.3 B/P:168/107 Pulse:83 Resp:20 SaO2:97 OXYGEN Last weight lbs:110 oz:8 K.122 Method:Bed Scales Exam General appearance: alert, voice is stronger Eyes: anicteric ENT: mucous membranes moist Cardiovascular: regular rate & rhythm Respiratory: improved aeration. Upper airway rhonchi ABD: non-distended, soft, no tenderness Assessment/Plan Problem List 1. Proteus mirabilis pneumonia 2. Community acquired pneumonia Status: Acute 3. Rhabdomyolysis 4. Elevated lactic acid level Status: Acute 5. Dehydration Status: Acute 6. Hypernatremia Status: Acute 7. Parkinson disease Status: Chronic 8. Hypertension Status: Chronic 9. Hyperlipemia Status: Chronic 10. Sacral decubitus ulcer 11. Protein calorie malnutrition Patient condition Improving Plan: Discharge home with home health This inpt stay is expected to cross 2 MNs from start of care Yes at 0856
[2017-04-08 10:28] VITALS: BP 158/97
--- NOTE | 2017-04-09 13:13 | DISCHARGE SUMMARY STANDARD ---
Discharge Summary (FCA2) Date of admission: 04/03/17 Date of discharge: 04/08/17 Problem List: 1. Proteus mirabilis pneumonia 2. Community acquired pneumonia 3. Rhabdomyolysis 4. Elevated lactic acid level 5. Dehydration 6. Hypernatremia 7. Parkinson disease 8. Hypertension 9. Hyperlipemia 10. Sacral decubitus ulcer 11. Protein calorie malnutrition History of present illness: Mr. Agarwal is a 81yo male with a hx of Parkinsons who had a cough for a few weeks. He was seen in the office once and started on phenylephrine for nasal congestion. He did not improve therefore zithromax was called to the pharmacy. This did not seem to work either and he continued to sound more congested and get more SOA. He was brought to the ER for evaluation and was felt to have a bronchitis or possible pneumonia. He also has a decubitus ulcer that was a stage 3 on his buttock. His sodium, WBC, and lactic acid were elevated. He was admitted for further evaluation and treatment. At the time of H&P, patient's had left so information was obtained from ER nurse and office notes as patient is not verbal. Exam on admission: General appearance: awake, tries to answer questions but not able to speak Eyes: PERRLA ENT: nose normal, dry mucous membranes, multiple abrasions and cuts on the pharynx from suctioning in the ER Neck: non-tender, no carotid bruit, supple Cardiovascular: regular rate & rhythm Respiratory: rhonchi bilaterally ABD: non-distended, normal bowel sounds, no rebound, soft, no tenderness, no guarding Extremities: no peripheral edema Musculoskeletal: unable to do MS exam d/t Parkinson's, patient has a definite tremor and contractures as well of the arms and legs Skin: right buttock with a stage 3 ulcer Neuro: masklike facies, tremor Hospital Course: The patient's initial CXR showed nothing acute. He was started on levaquin and clindamycin as there was an aspiration risk. He was started on IVF's. Clinically he had a pneumonia, likely with component of aspiration. A CXR was ordered after hydration. Pravastatin was held due to elevated CPK and possible rhabdomyolysis. A wound care consult for his decubitus was ordered. The patient's sodium improved but his CPK continued to elevate. A repeat CXR showed bibasilar pneumonia. His abx were continued. His sputum grew yeast and proteus, therefore diflucan was ordered and he was started on levaquin. Another CXR still continued to show pneumonia. His CPK gradually improved and he began feeling better. He was stable to be discharged home with home health on abx for his pneumonia on 04/08/17. Discharge medications: Stop taking the following medications: Pravastatin Sodium (Pravastatin 20MG) 20 MG TABLET ORAL AT BEDTIME NIGHTLY MUPIROCIN 2% (Bactroban Oint) 22 GM OINT...G. TOPICAL DAILY Continue taking these medications: Benazepril Hcl (Benazepril HCl) 40 MG TABLET 40 MILLIGRAM ORAL DAILY Start taking the following new medications: ALBUTEROL (Albuterol 0.083% Neb) 2.5 MG/3 ML NEB 2.5 MILLIGRAM INHALATION (NEB) FOUR TIMES A DAY Qty = 60 Refills = 2 Levofloxacin (Levaquin 500MG) 500 MG TABLET 500 MILLIGRAM ORAL DAILY Qty = 6 No Refills Fluconazole (Diflucan 100MG) 100 MG TABLET 100 MILLIGRAM ORAL DAILY Qty = 7 No Refills NEBULIZER (Compact Compressor Nebulizer) 1 EACH EACH 1 UNIT Does Not Apply UD Qty = 1 No Refills Disposition: F/U with: Mabel Downs MD Follow up: 1-2 weeks Comments, Specifics r/t O2, Equipment, Antibiotics, etc: Wound care (sacrum, heels), Monitor respiratory status Care Management Consult for: HOME HEALTH Activity: Cont Current activity Diet: Continue same diet Discharge to: HOME Agency needed? Y Specify: HOME HEALTH at 1312
== END 2017-04-08 10:27 | disposition home health service (06) | DRG 177 ==
LOC: ER 13:43 → 2ND 14:32
PROVIDERS: Emergency Medicine; Family Medicine
DX: J15.6 Pneumonia due to other Gram-negative bacteria (principal); L89.153 Pressure ulcer of sacral region, stage 3; E46 Unspecified protein-calorie malnutrition; G20 Parkinson's disease; E86.0 Dehydration; Z68.1 Body mass index [BMI] 19.9 or less, adult; I10 Essential (primary) hypertension
CPT/HCPCS: J1450; J1956